=== PATIENT | female | born 1975 | race Caucasian/White ===

== ENCOUNTER 2019-01-27 13:25 | Emergency (ER) | payer SELFPAY ==
[2019-01-27] MEDS ORDERED: NORMAL SALINE 1000 ML 1,000 ML IV ONE (14:10)
[2019-01-27] MEDS ORDERED: ONDANSETRON HCL INJ/PF 4 MG/2 ML SDV IV ONE (14:10)
--- NOTE | 2019-01-27 14:11 | ER Document Report ---
ED Medical Screen (RME) - General Chief Complaint: Flank Pain Stated Complaint: FLANK PAIN Time Seen by Provider: 01/27/19 14:04 TRAVEL OUTSIDE OF THE [place] IN LAST 30 DAYS: No - Related Data Allergies/Adverse Reactions: amoxicillin Allergy (Verified 12/21/17 15:37) nitrofurantoin [From Macrobid] Allergy (Verified 12/21/17 15:37) Sulfa (Sulfonamide Antibiotics) Allergy (Verified 12/21/17 15:37) Past Medical History - Social History Chew tobacco use (# tins/day): No Frequency of alcohol use: Occasional Drug Abuse: None Renal/ Medical History: Denies: Hx Peritoneal Dialysis Past Surgical History: Reports: Hx Cholecystectomy Physical Exam - Vital signs Vitals: Temp Pulse Resp BP Pulse Ox 98.6 F 117 H 19 156/96 H 100 01/27/19 13:30 01/27/19 13:30 01/27/19 13:30 01/27/19 13:30 01/27/19 13:30 Course - Vital Signs Vital signs: Temp Pulse Resp BP Pulse Ox 98.6 F 117 H 19 156/96 H 100 01/27/19 13:58 01/27/19 13:30 01/27/19 13:58 01/27/19 13:30 01/27/19 13:58
[2019-01-27 15:10] LABS: ABSOLUTE LYMPHOCYTES (AUTO) 1.7 10^3/uL (0.5-4.7); ABSOLUTE MONOCYTES (AUTO) 0.8 10^3/uL (0.1-1.4); ABSOLUTE NEUT (AUTO) 5.1 10^3/uL (1.7-8.2); BASOPHILS % (AUTO) 0.3 % (0-2); EOSINOPHILS % (AUTO) 0.5 % (0-6); HEMATOCRIT 39.8 % (36.0-47.0); HEMOGLOBIN 13.8 g/dL (12.0-15.5); LYMPHOCYTES % (AUTO) 22.4 % (13-45); MEAN CORPUSCULAR HEMOGLOBIN 29.9 pg (27.0-33.4); MEAN CORPUSCULAR HGB CONC 34.6 g/dL (32.0-36.0); MEAN CORPUSCULAR VOLUME 86 fl (80-97); MONOCYTES % (AUTO) 10.3 % (3-13); PLATELET COUNT 188 10^3/uL (150-450); RED BLOOD COUNT 4.61 10^6/uL (3.72-5.28); RED CELL DISTRIBUTION WIDTH 14.3 % (11.5-14.0); SEGMENTED NEUTROPHILS % (AUTO) 66.5 % (42-78); TOTAL CELLS COUNTED % (AUTO) 100 %; WHITE BLOOD COUNT 7.7 10^3/uL (4.0-10.5)
[2019-01-27 15:23] LABS: APPEARANCE,URINE SLIGHTLY-CLOUDY; BILIRUBIN,URINE NEGATIVE (NEGATIVE); COLOR,URINE YELLOW; GLUCOSE, URINE NEGATIVE (NEGATIVE); KETONES,URINE NEGATIVE (NEGATIVE); LEUKOCYTE ESTERASE,URINE MODERATE (NEGATIVE); NITRITE,URINE NEGATIVE (NEGATIVE); PROTEIN,URINE NEGATIVE (NEGATIVE); URINE SPECIFIC GRAVITY 1.011; UROBILINOGEN,URINE NEGATIVE mg/dL (<2.0)
[2019-01-27 16:12] LABS: ALBUMIN 3.8 g/dL (3.5-5.0); ALKALINE PHOSPHATASE 91 U/L (38-126); ANION GAP 9 (5-19); ASPARTATE AMINO TRANSFERASE 30 U/L (14-36); BILIRUBIN,DIRECT 0.1 mg/dL (0.0-0.4); BILIRUBIN,TOTAL 0.5 mg/dL (0.2-1.3); BLOOD UREA NITROGEN 4 mg/dL (7-20); CALCIUM 8.9 mg/dL (8.4-10.2); CARBON DIOXIDE 27 mmol/L (22-30); CHLORIDE 101 mmol/L (98-107); GLUCOSE 115 mg/dL (75-110); POTASSIUM 3.3 mmol/L (3.6-5.0); TOTAL PROTEIN 7.1 g/dL (6.3-8.2)
--- NOTE | 2019-01-27 17:27 | ER Document Report ---
ED GI/ - General Chief Complaint: Flank Pain Stated Complaint: FLANK PAIN Time Seen by Provider: 01/27/19 14:04 Primary Care Provider: [facility] [Provider Group] - 01/30/19 Mode of Arrival: Ambulatory Information source: Patient Notes: Patient reports a 4-day history of lower pelvic cramping that radiates to right side and right flank area. Patient denies any nausea vomiting or diarrhea. Patient denies any urinary symptoms. Patient states that she has had a decrease in her appetite. TRAVEL OUTSIDE OF THE [place] IN LAST 30 DAYS: No - HPI Patient complains to provider of: Flank pain, Pelvic pain. No: Vaginal bleeding, Vaginal discharge, Vomiting Onset: Other - 4 days Timing/Duration: Persistent Quality of pain: Achy Pain Level: 3 Location: RLQ, Right flank Vaginal bleeding (Compared to normal period): None Associated symptoms: Loss of appetite. denies: Constipation, Diarrhea, Dysuria, Fever, Nausea, Urinary hesitancy, Urinary frequency, Urinary retention, Urinary urgency, Vaginal discharge, Vomiting Exacerbated by: Denies Relieved by: Denies Similar symptoms previously: No Recently seen / treated by doctor: No - Related Data Allergies/Adverse Reactions: amoxicillin Allergy (Verified 12/21/17 15:37) nitrofurantoin [From Macrobid] Allergy (Verified 12/21/17 15:37) Sulfa (Sulfonamide Antibiotics) Allergy (Verified 12/21/17 15:37) Past Medical History - General Information source: Patient - Social History Smoking Status: Current Every Day Smoker Chew tobacco use (# tins/day): No Frequency of alcohol use: Occasional Drug Abuse: None Occupation: Nurse Family History: None Patient has suicidal ideation: No Patient has homicidal ideation: No - Medical History Medical History: Negative Renal/ Medical History: Denies: Hx Peritoneal Dialysis Past Surgical History: Reports: Hx Cholecystectomy, Hx Orthopedic Surgery Review of Systems - Review of Systems Constitutional: No symptoms reported. denies: Fever, Recent illness EENT: No symptoms reported Cardiovascular: No symptoms reported. denies: Chest pain, Dizziness, Lightheaded Respiratory: No symptoms reported. denies: Cough, Short of breath Gastrointestinal: Abdominal pain, Poor appetite. denies: Diarrhea, Nausea, Vomiting, Constipation, Poor fluid intake Genitourinary: Flank pain. denies: Dysuria Female Genitourinary: No symptoms reported. denies: Vaginal discharge, Vaginal bleeding Musculoskeletal: Back pain Skin: No symptoms reported Hematologic/Lymphatic: No symptoms reported Neurological/Psychological: No symptoms reported Physical Exam - Vital signs Vitals: Temp Pulse Resp BP Pulse Ox 98.6 F 117 H 19 156/96 H 100 01/27/19 13:30 01/27/19 13:30 01/27/19 13:30 01/27/19 13:30 01/27/19 13:30 - General General appearance: Appears well, Alert In distress: None - HEENT Head: Normocephalic, Atraumatic Eyes: Normal Conjunctiva: Normal Nasal: Normal Mouth/Lips: Normal Mucous membranes: Normal Neck: Normal, Supple. No: Lymphadenopathy - Respiratory Respiratory status: No respiratory distress Chest status: Nontender Breath sounds: Normal. No: Rales, Rhonchi, Stridor, Wheezing Chest palpation: Normal - Cardiovascular Rhythm: Regular Heart sounds: S1 appreciated, S2 appreciated - Abdominal Inspection: Normal Distension: No distension Bowel sounds: Normal Tenderness: Tender - Suprapubic, right lower quadrant, right upper quadrant - Back Back: CVA tenderness - Right CVA. No: Vertebra tenderness - Extremities General upper extremity: Normal inspection, Normal ROM General lower extremity: Normal inspection, Normal ROM - Neurological Neuro grossly intact: Yes Cognition: Normal Patterson Coma Scale Eye Opening: Spontaneous Salvador Coma Scale Verbal: Oriented Salvador Coma Scale Motor: Obeys Commands Salvador Coma Scale Total: 15 - Psychological Associated symptoms: Normal affect, Normal mood - Skin Skin Temperature: Warm Skin Moisture: Dry Skin Color: Normal Course - Re-evaluation Re-evalutation: 01/27/19 18:51 Patient with UTI, patient does have tenderness to the right lower quadrant and right flank area. CT noncontrasted was ordered to evaluate for possible obstructive stone. Patient without any obstructive uropathy noted on scan. Appendix was not visualized although there was no pericecal inflammation noted. Consulted with Dr. Swann regarding patient presentation. Recommends giving patient a dose of Rocephin IV and Cipro orally. Patient is refusing IV and is agreeable for IM injection at this time. Patient without any fever or leukocytosis. Patient with stable vital signs at this time. Good return precautions discussed with patient. Patient verbalized understanding and agrees with plan of care at this time. - Vital Signs Vital signs: Temp Pulse Resp BP Pulse Ox 97.9 F 89 16 123/80 99 01/27/19 19:52 01/27/19 19:52 01/27/19 19:52 01/27/19 19:52 01/27/19 19:52 - Laboratory Result Diagrams: 01/27/19 14:47 01/27/19 14:47 Laboratory results interpreted by me: 01/27/19 01/27/19 01/27/19 14:32 14:47 14:47 RDW 14.3 H Potassium 3.3 L BUN 4 L Glucose 115 H Urine Blood LARGE H Ur Leukocyte Esterase MODERATE H Urine Ascorbic Acid 20 H 01/27/19 19:58 Labs- Entire Visit 01/27/19 01/27/19 01/27/19 14:32 14:47 14:47 WBC 7.7 RBC 4.61 Hgb 13.8 Hct 39.8 MCV 86 MCH 29.9 MCHC 34.6 RDW 14.3 H Plt Count 188 Lymph % (Auto) 22.4 Josephine % (Auto) 10.3 Eos % (Auto) 0.5 Baso % (Auto) 0.3 Absolute Neuts (auto) 5.1 Absolute Lymphs (auto) 1.7 Absolute Monos (auto) 0.8 Absolute Eos (auto) 0.0 Absolute Basos (auto) 0.0 Seg Neutrophils % 66.5 Sodium 137.3 Potassium 3.3 L Chloride 101 Carbon Dioxide 27 Anion Gap 9 BUN 4 L Creatinine 0.63 Est GFR ( Amer) > 60 Est GFR (MDRD) Non-Af > 60 Glucose 115 H Calcium 8.9 Total Bilirubin 0.5 Direct Bilirubin 0.1 Neonat Total Bilirubin Not Reportable Neonat Direct Bilirubin Not Reportable Neonat Indirect Bili Not Reportable AST 30 ALT 37 Alkaline Phosphatase 91 Total Protein 7.1 Albumin 3.8 Urine Color YELLOW Urine Appearance SLIGHTLY-CLOUDY Urine pH 6.0 Ur Specific [place] 1.011 Urine Protein NEGATIVE Urine Glucose (UA) NEGATIVE Urine Ketones NEGATIVE Urine Blood LARGE H Urine Nitrite NEGATIVE Urine Bilirubin NEGATIVE Urine Urobilinogen NEGATIVE Ur Leukocyte Esterase MODERATE H Urine WBC (Auto) 40 Urine RBC (Auto) 71 Squamous Epi Cells Auto 1 Urine Mucus (Auto) MOD Urine Ascorbic Acid 20 H Urine HCG, Qual NEGATIVE - Diagnostic Test Radiology reviewed: Reports reviewed Discharge - Discharge Clinical Impression: Pyelonephritis, Hypokalemia Condition: Stable Disposition: HOME, SELF-CARE Instructions: Ciprofloxacin ([facility]), Hypokalemia ([facility]), Pyelonephritis ([facility]), Rocephin ([facility]) Additional Instructions: Return immediately for any new or worsening symptoms: Fever, vomiting, increased pain or any new or concerning symptoms Followup with your primary care provider, call tomorrow to make a followup appointment Urine culture is pending at this time, we will call if you need any different treatment Increase foods rich in potassium in diet. Follow-up with your primary doctor for recheck. They can recheck your urine as well as electrolytes. Prescriptions: Ciprofloxacin HCl [Cipro 500 mg Tablet] 500 mg PO BID #20 tablet Cephalexin Monohydrate [Keflex 500 mg Capsule] 500 mg PO Q6H 7 Days capsule Naproxen [Naprosyn 250 Nmg Tablet] 1 tab PO BID #14 tablet Forms: Return to Work Referrals: [facility] [Provider Group] - 01/30/19
--- NOTE | 2019-01-27 18:00 | RADIOLOGY REPORT (SQ) ---
EXAM DESCRIPTION: CT ABD/PELVIS NO ORAL OR IV COMPLETED DATE/TIME: 01/27/2019 5:47 pm REASON FOR STUDY: R flank, RLQ pain COMPARISON: None. TECHNIQUE: CT scan of the abdomen and pelvis performed without intravenous or oral contrast. Images reviewed with lung, soft tissue, and bone windows. Reconstructed coronal and sagittal MPR images revi ewed. All images stored on PACS. All CT scanners at this facility use dose modulation, iterative reconstruction, and/or weight based d osing when appropriate to reduce radiation dose to as low as reasonably achievable (ALARA). [facility]: Dose Right [facility]: CareDose [facility]: Dose Right [facility]: Teradose 4D [facility]: [employer] RADIATION DOSE: CT Rad equipment meets quality standard of care and radiation dose reduction techniq ues were employed. CTDIvol: 5.8 mGy. DLP: 298 mGy-cm.mGy. LIMITATIONS: None. FINDINGS: LOWER CHEST: No significant findings. No nodules or infiltrates. NON-CONTRASTED LIVER, SPLEEN, ADRENALS: The liver is unremarkable. There is splenomegaly. No adrena l mass. PANCREAS: No masses. No peripancreatic inflammatory changes. GALLBLADDER: Surgically absent. RIGHT KIDNEY AND URETER: No suspicious masses. Assessment limited by lack of IV contrast. No signif icant calcifications. No hydronephrosis or hydroureter. LEFT KIDNEY AND URETER: No suspicious masses. Assessment limited by lack of IV contrast. No signifi cant calcifications. No hydronephrosis or hydroureter. AORTA AND RETROPERITONEUM: No aneurysm. No retroperitoneal masses or adenopathy. BOWEL AND PERITONEAL CAVITY: No obvious masses or inflammatory changes. No free fluid. APPENDIX: Not identified. PELVIS, BLADDER, AND ABDOMINAL WALL:No abnormal masses. No free fluid. Bladder normal. BONES: No significant findings. OTHER: No other significant finding. IMPRESSION: There is no urinary pathology. There is splenomegaly. The appendix is not identified, but no pericecal inflammation is seen. COMMENT: Quality ID # [id number]: Final reports with documentation of one or more dose reduction techniques (e.g., Automated exposure control, adjustment of the mA and/or kV according to patient size, use of iterative reconstruction technique) TECHNICAL DOCUMENTATION: JOB ID: [id number] [employer]- All Rights Reserved Reading location - IP/workstation name: [email or web address]
[2019-01-27] MEDS ORDERED: CEFTRIAXONE INJ 1000 MG VIAL IM ONE (18:48)
[2019-01-27] MEDS ORDERED: CIPROFLOXACIN HCL 500 MG TABLET PO ONE (18:48)
[2019-01-27] MEDS ORDERED: LIDOCAINE 1% INJ (10 MG/ML) 10 ML MDV INJ ONE (18:51)
[2019-01-27] MEDS ORDERED: POTASSIUM CHLORIDE 10 MEQ TABLET.ER PO ONE (18:53)
[2019-01-27 19:50] VITALS: BP 123/80
== END 2019-01-27 19:52 | disposition home or self-care (01) ==
LOC: ER 13:25
DX: N12 Tubulo-interstitial nephritis, not specified as acute or chronic (principal); E87.6 Hypokalemia; R10.9 Unspecified abdominal pain; R10.2 Pelvic and perineal pain; F17.200 Nicotine dependence, unspecified, uncomplicated; Z88.0 Allergy status to penicillin; Z90.49 Acquired absence of other specified parts of digestive tract; Z88.2 Allergy status to sulfonamides
CPT/HCPCS: 99284; 96372; 36415; 87086; 85025; 81025; 80053; 81001; 74176; J0696